=== PATIENT | female | born 1995 | race Caucasian/White ===

== ENCOUNTER 2021-05-11 19:10 | Emergency (ER) | payer OTHER, SELFPAY ==
[2021-05-11 19:54] VITALS: BP 106/66; PULSE 86; RESP 18; TEMP 36.6; O2SAT 100
--- NOTE | 2021-05-11 20:02 | PC.NURSE ---
Pt reports after triage that she may not stay as busy ED at this time. States will let staff know if she decides to leave.
--- NOTE | 2021-05-11 20:02 | PC.NURSE ---
Pt exits ED prior to being seen. Ambulatory with steady gait, no sign of distress.
== END 2021-05-11 20:02 | disposition left against medical advice (07) ==
LOC: ANHED 20:10
PROVIDERS: PCP Pediatrics Adolescent Medicine
DX: R10.9 Unspecified abdominal pain (principal)
CPT/HCPCS: 99199

== ENCOUNTER 2021-10-30 07:10 | Emergency (ER) | payer OTHER, SELFPAY ==
[2021-10-30] VITALS (13 sets, daily range): BP systolic 98–111; BP diastolic 56–71; PULSE 96; RESP 16; TEMP 39.6; O2SAT 98–100
[2021-10-30 07:51] LABS: Appearance Urine Slightly Cloudy (Clear); Bilirubin Urine 1+ (Negative); Color Urine Yellow (Yellow); Glucose Urine UA Negative (Negative); Ketones Urine 1+ mg/dL (Negative); Leukocyte Esterase Ur Negative LEU/UL (Negative); Nitrate Urine Negative (Negative); Protein Urine 1+ mg/dL (Negative); Specific Grav Ur >= 1.030 (1.001-1.035); Urobilinogen Urine 0.2 mg/dL (<2.0); pH Urine 5.5 (5.0-9.0)
[2021-10-30] MEDS: ACETAMINOPHEN 500 MG TABLET 1000 MG PO (07:51)
[2021-10-30 07:56] LABS: Add Urine Microscopic? YES; Blood Urine Trace-Intact (Negative)
[2021-10-30 08:02] LABS: Bacteria Urine Trace /hpf; Mucus Urine Moderate /lpf; Squamous Epithelial Cell Urine Many /hpf (Few); WBC Urine 0-3 /hpf
--- NOTE | 2021-10-30 08:09 | ED.FEVER ---
HPI - Fever General Chief Complaint: Fever Stated Complaint: fever, body aches, cough Time Seen by Provider: 10/30/21 07:14 History of Present Illness HPI Narrative: 26-year-old female presenting the emergency department for evaluation of fever with associated body aches fatigue and nausea. Patient states that the symptoms started yesterday and then progressed to the evening. Patient did have a fever last night that she treated with Tylenol and fever improved. Patient did not take additional Tylenol prior to arrival to the emergency department. Patient does report decreased p.o. intake and nausea but denies any vomiting or diarrhea. Patient denies any urinary symptoms. Patient denies any chest pain shortness of breath or abdominal pain. Patient does have associated cough. Patient is not vaccinated against COVID. Patient did take a home COVID test that was negative. Related Data Allergies Allergy/AdvReac Type Severity Reaction Status Date / Time ondansetron Allergy Unknown Hives Verified 10/30/21 07:51 Review of Systems Review of Systems: CONSTITUTIONAL: Fevers chills or sweats EYES: Denies visual changes, redness, or discharge. ENT: Denies rhinorrhea, congestion, sore throat, or otalgia. CARDIOVASCULAR: See HPI RESPIRATORY: Denies cough or dyspnea. GASTROINTESTINAL: See HPI GENITOURINARY: Denies dysuria or hematuria. SKIN: Denies rash or itching. MUSCULOSKELETAL: Generalized body aches NEUROLOGIC: Denies headache, numbness, or weakness. Exam Narrative: APPEARANCE: Well appearing, no pain, no distress, well-nourished. HEAD: normocephalic, atraumatic. EYES: PERRLA/EOMI, conjunctivae clear. NOSE: Normal no drainage EARS:TMS clear with good light reflex. THROAT: Pharynx clear, no exudate. NECK: Supple. No adenopathy, no masses. RESPIRATORY: Airway patent, respirations nonlabored. Clear to auscultation bilaterally, no rales, rhonchi, wheezing. CARDIOVASCULAR: Regular rate and rhythm without murmurs rubs or gallops. ABDOMINAL: Soft, nontender, nondistended, normal bowel sounds MUSCULOSKELETAL: Moves all extremities. Strength/ROM intact, No edema, No calf tenderness. NEURO: Alert. Cranial nerves II through XII intact. Grossly intact SKIN: Warm, dry. 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 Patient was updated on results of the work-up. All questions and concerns were addressed. Vital Signs Vital signs: Vital Signs Blood Pressure 111/71 10/30/21 07:16 Pulse Oximetry 100 10/30/21 07:16 Temperature 103.2 F H 10/30/21 07:20 Pulse Rate 96 10/30/21 07:20 Respiratory Rate 16 10/30/21 07:20 Blood Pressure 98/57 L 10/30/21 09:01 Pulse Oximetry 98 10/30/21 09:01 MDM - Fever Lab Data Labs: Lab Results 10/30/21 10/30/21 Range/Units 07:40 07:46 Urine Color Yellow (Yellow) Urine Appearance Slightly cloudy (Clear) Urine pH 5.5 (5.0-9.0) Ur Specific [place] >= 1.030 (1.001-1.035) Urine Protein 1+ H (Negative) mg/dL Urine Glucose (UA) Negative (Negative) mg/dL Urine Ketones 1+ H (Negative) mg/dL Ur Blood (Man) Trace-intact (Negative) Urine Nitrate Negative (Negative) Urine Bilirubin 1+ H (Negative) Urine Urobilinogen 0.2 (<2.0) mg/dL Leukocyte Esterase Rfl Negative (Negative) THAI/UL Urine RBC 3-5 H (0-2) /hpf Urine WBC 0-3 /hpf Ur Squamous Epith Cells Many H (Few) /hpf Urine Bacteria Trace /hpf Urine Mucus Moderate H /lpf SARS-CoV-2 RNA (RT-PCR) Positive A [facility] Bedside Result Negative Reference Range: Negative Discharge Plan Discharge Clinical Impression: COVID Patient Disposition: Home, Self-Care Condition: Stable Instructions: Antibiotic Form, COVID-19 (Coronavirus Disease 2019) (ED) Additional Instructions: Tylenol ibuprofen for pain control. Drink plenty of fluids. Quarantine as
[2021-10-30 08:21] LABS: SARS-CoV-2 RNA PCR Positive
[2021-10-30] MEDS: SODIUM CHLORIDE 0.9% IV 1,000 ML 999 ML IV CONT (08:32)
[2021-10-30] MEDS: KETOROLAC 15 MG/ML VIAL (*BKC) IV PUSH (08:33)
== END 2021-10-30 09:35 | disposition home or self-care (01) ==
PROVIDERS: Emergency Provider Emergency Medicine
DX: U07.1 COVID-19 (principal); Z28.310 Unvaccinated for COVID-19
CPT/HCPCS: 81001; 81025; 96361; 96374; 99284; A9270; C9803; J1885; J7030; U0003; U0005

== ENCOUNTER 2021-11-13 07:43 | Emergency (ER) | payer OTHER, SELFPAY ==
--- NOTE | ~2021-11-13 | CT_ITS ---
EXAMINATION: CT abdomen pelvis w con DATE: 11/13/2021 10:28 INDICATION: Abdominal pain. Vomiting. TECHNIQUE: Computed tomography (CT) of the abdomen and pelvis was performed with 100 mL Omnipaque 350 intravenous contrast. Automated exposure control and iterative reconstruction technique were employe d. The dose-length product was 801.07 mGy-cm. COMPARISON: None. FINDINGS: The visualized portions of the lung bases demonstrates mild atelectasis. There is a 5 mm no dule in right lower lobe, likely benign. No pleural effusion. The heart size is normal. No pericardia l effusion. The liver, gallbladder, spleen, pancreas, adrenal glands, and kidneys are normal. There a re no dilated loops of bowel. The appendix is normal. There are no pathologically enlarged lymph node s. There is physiologic fluid in the pelvis. There is mild osteoarthritis of the sacroiliac joints. IMPRESSION: 1. No etiology for the patient's symptoms. Reviewed, dictated and finalized at location A.
--- NOTE | ~2021-11-13 | US_ITS ---
EXAMINATION: US pelvic complete w TV DATE: 11/13/2021 10:01 INDICATION: Pelvic pain. TECHNIQUE: Multiple transabdominal and transvaginal sonographic images of the pelvis were obtained. COMPARISON: None. FINDINGS: TRANSABDOMINAL ULTRASOUND: The uterus measures 7.4 x 3.9 x 5.3 cm. There is physiologic free fluid in the pelvis. TRANSVAGINAL ULTRASOUND: The endometrial complex measures 5 mm in thickness. The right ovary measures 3.0 x 1.6 x 1.6 cm. The left ovary measures 3.3 x 1.4 x 1.5 cm. There is normal vascular flow in the ovaries. IMPRESSION: 1. Normal pelvis. Reviewed, dictated and finalized at location A. IMPRESSION: 1. Normal pelvis.
[2021-11-13 07:46] VITALS: BP 134/82; PULSE 96; RESP 20; TEMP 37; O2SAT 100
[2021-11-13 08:25] LABS: Basophils Absolute Auto 0.1 K/mm3 (0.0-0.1); Basophils Percent Auto 0.5 % (0.2-1.2); Eosinophils Absolute Auto 0.1 K/mm3 (0-0.3); Eosinophils Percent Auto 0.5 % (0-4.4); Hematocrit 39.3 % (37.0-47.0); Hemoglobin 12.8 g/dL (12.0-15.0); Immature Granulocyte Absolute 0.03 K/mm3 (0.00-0.031); Immature Granulocyte Percent A 0.3 % (0-0.5); Lymphocytes Absolute Auto 2.07 K/mm3 (0.9-3.2); Lymphocytes Percent Auto 20.5 % (18.3-44.2); Mean Corpuscular HGB Conc 32.6 g/dl (32-36); Mean Corpuscular Hemoglobin 29.8 pg (26-34); Mean Corpuscular Volume 91.4 fl (80-100); Mean Platelet Volume 9.1 fl (7.4-10.4); Monocytes Absolute Auto 0.6 K/mm3 (0.1-0.6); Monocytes Percent Auto 6.3 % (2.6-8.5); Neutrophils Absolute Auto 7.3 K/mm3 (1.3-6.7); Neutrophils Percent Auto 71.9 % (45.5-73.1); Platelet Count Result 341 k/mm3 (150-375); Red Cell Distribution Width 12.9 % (11.5-14.5); White Blood Count 10.1 K/mm3 (4.5-10.0)
[2021-11-13 08:41] LABS: Alanine Aminotransferase 27 U/L (6-35); Albumin Level 4.4 g/dL (3.5-5.1); Alkaline Phosphatase 79 U/L (38-126); Anion Gap 10 mmol/L (8-16); Aspartate Amino Transferase 26 U/L (14-36); Bilirubin,Total 0.4 mg/dL (0.2-1.3); Blood Urea Nitrogen 12 mg/dL (7-17); Calcium 9.2 mg/dL (8.4-10.2); Carbon Dioxide 24 mmol/L (22-30); Chloride 109 mmol/L (98-107); Estimated CRCL calculation 117 ml/min; Estimated Glomerular Filt Rate > 60; Glucose 95 mg/dL (65-110); Lipase 37 U/L (23-300); Sodium 143 mmol/L (137-145)
--- NOTE | 2021-11-13 08:59 | ED.ABDPAIN ---
HPI - Abdominal Pain General Chief Complaint: Abdominal Pain Stated Complaint: abd pain Time Seen by Provider: 11/13/21 08:41 Source: patient Mode of arrival: ambulatory Limitations: no limitations History of Present Illness HPI narrative: This is a 26-year-old female that presents to the emergency department for crampy lower abdominal pain. Ongoing since this morning. Associated with nausea, vomiting and diarrhea. Denies fevers or dysuria. Related Data Allergies Allergy/AdvReac Type Severity Reaction Status Date / Time ondansetron Allergy Unknown Hives Verified 10/30/21 07:51 Review of Systems Review of Systems: CONSTITUTIONAL: Denies fever GASTROINTESTINAL: Reports abdominal pain, nausea, vomiting, and diarrhea. GENITOURINARY: Denies dysuria All systems reviewed & are unremarkable except as noted in HPI and below PMFSH Past Medical History Medical History (Updated 11/13/21 @ 11:13 by Renu Calle PA-C) No active medical problems Social History Social History (Updated 11/13/21 @ 09:01 by Renu Calle PA-C) Smoking status: Never smoker Exam Narrative: GENERAL: Well-appearing, well-nourished, and in no acute distress. HEAD: Normocephalic, atraumatic. EYES: EOMI. CHEST: Clear to auscultation. No respiratory distress. No wheezes rales or rhonchi HEART: Regular rate and rhythm. No murmur heard. Normal peripheral pulses. ABDOMEN: Soft, nondistended, normal active bowel sounds. Mild tenderness to palpation throughout the lower abdomen, without guarding. No CVA tenderness EXTREMITIES: Normal range of motion. No edema. SKIN: Warm, dry, no rash. NEURO: No focal deficits. Alert and oriented x3. PSYCH: Normal mood and affect Course Vital Signs Vital signs: Vital Signs Temperature 98.6 F 11/13/21 07:46 Pulse Rate 96 11/13/21 07:46 Respiratory Rate 20 11/13/21 07:46 Blood Pressure 134/82 11/13/21 07:46 Pulse Oximetry 100 11/13/21 07:46 Oxygen Delivery Room Air 11/13/21 07:46 Temperature 98.6 F 11/13/21 07:46 Pulse Rate 96 11/13/21 07:46 Respiratory Rate 20 11/13/21 07:46 Blood Pressure 134/82 11/13/21 07:46 Pulse Oximetry 100 11/13/21 07:46 Oxygen Delivery Room Air 11/13/21 07:46 MDM - Abdominal Pain MDM Narrative Medical decision making narrative: Patient presents to the emergency department for lower abdominal pain present this morning. She is afebrile and nontoxic-appearing. Her vitals are stable. CBC and metabolic panel without concerning findings. Lipase is normal. UA without evidence of infection. Bedside test is negative. Pelvic ultrasound without concerning findings. CT scan of the abdomen and pelvis without acute abnormalities. Patient was updated on case findings. Hydrated and given antiemetic with relief. No episodes of vomiting in the ED. She is stable and felt appropriate for further outpatient evaluation. She was given warnings to return to the ER Lab Data Attestation: I reviewed the patient's lab results. Result diagrams: 11/13/21 08:15 11/13/21 08:15 Labs: Lab Results 11/13/21 11/13/21 11/13/21 Range/Units 08:15 08:15 08:39 WBC 10.1 H (4.5-10.0) K/mm3 RBC 4.30 (4.2-5.4) M/mm3 Hgb 12.8 (12.0-15.0) g/dL Hct 39.3 (37.0-47.0) % MCV 91.4 (80-100) fl MCH 29.8 (26-34) pg MCHC 32.6 (32-36) g/dl RDW 12.9 (11.5-14.5) % Plt Count 341 (150-375) k/mm3 MPV 9.1 (7.4-10.4) fl Immature Gran % (Auto) 0.3 (0-0.5) % Neut % (Auto) 71.9 (45.5-73.1) % Lymph % (Auto) 20.5 (18.3-44.2) % Lamb % (Auto) 6.3 (2.6-8.5) % Eos % (Auto) 0.5 (0-4.4) % Baso % (Auto) 0.5 (0.2-1.2) % Lymph # (Auto) 2.07 (0.9-3.2) K/mm3 Lamb # (Auto) 0.6 (0.1-0.6) K/mm3 Eos # (Auto) 0.1 (0-0.3) K/mm3 Baso # (Auto) 0.1 (0.0-0.1) K/mm3 Abs Immat Gran (auto) 0.03 (0.00-0.031) K/mm3 Absolute Neuts (auto) 7.3 H (1.3-6.7) K/mm3
[2021-11-13 09:03] LABS: Add Urine Microscopic? YES; Appearance Urine Slightly Cloudy (Clear); Bilirubin Urine 1+ (Negative); Blood Urine Negative (Negative); Color Urine Yellow (Yellow); Glucose Urine UA Negative (Negative); Ketones Urine Trace mg/dL (Negative); Leukocyte Esterase Ur Negative LEU/UL (Negative); Nitrate Urine Negative (Negative); Protein Urine Trace mg/dL (Negative); Specific Grav Ur >= 1.030 (1.001-1.035); pH Urine 5.5 (5.0-9.0)
--- NOTE | 2021-11-13 09:16 | PC.NURSE ---
pt taken to ultrasound at this time
[2021-11-13 09:19] LABS: Mucus Urine Heavy /lpf; Squamous Epithelial Cell Urine Many /hpf (Few)
[2021-11-13] MEDS: SODIUM CHLORIDE 0.9% IV 1,000 ML 999 ML IV CONT (09:52)
[2021-11-13] MEDS: diphenhydrAMINE HCl INJ 50 MG/ML VIAL 25 MG IV PUSH (09:52)
[2021-11-13] MEDS: METOCLOPRAMIDE HCL INJ 10 MG/2 ML VIAL IV PUSH (09:53)
--- NOTE | 2021-11-13 11:02 | PC.NURSE ---
Pt brought up to room 204 by chemical production technician and this nurse. PT was transferred to bed by floor techs and Lashawn and tech.
== END 2021-11-13 12:01 | disposition home or self-care (01) ==
PROVIDERS: Emergency Provider Emergency Medicine
DX: R10.30 Lower abdominal pain, unspecified (principal)
CPT/HCPCS: 36415; 74177; 76830; 76856; 80053; 81001; 81025; 83690; 85025; 96365; 96366; 96375; 99284; J0131; J1200; J2765; J7030; Q9967

== ENCOUNTER 2022-03-09 16:00 | Emergency (ER) | payer OTHER, SELFPAY ==
[2022-03-09 17:04] VITALS: BP 130/77; PULSE 111; RESP 18; TEMP 37.1; O2SAT 99
[2022-03-09 18:05] LABS: Influenza A QL RT-PCR Positive (Negative); Influenza B QL RT-PCR Negative (Negative); RSV RNA, RT-PCR Negative (Negative); SARS-CoV-2 RNA PCR Negative
--- NOTE | 2022-03-09 21:16 | ED.URI ---
HPI - URI/Sore Throat General Chief Complaint: Upper Respiratory Infection Stated Complaint: cough Time Seen by Provider: 03/09/22 21:04 Source: patient Mode of arrival: ambulatory Limitations: no limitations History of Present Illness HPI Narrative: This is a 27 year old female that presents to the ER for cold symptoms present since yesterday. Reports cough, congestion, malaise, fatigue, and myalgias. Reports she is not influenza vaccinated. Reports her significant other and child also have similar symptoms. She needs a note for work. Related Data Allergies Allergy/AdvReac Type Severity Reaction Status Date / Time ondansetron Allergy Unknown Hives Verified 10/30/21 07:51 Review of Systems Review of Systems: CONSTITUTIONAL: Denies fever, chills ENT: Reports congestion, sore throat RESPIRATORY: Reports cough. Denies dyspnea. GASTROINTESTINAL: Reports nausea, vomiting All systems reviewed & are unremarkable except as noted in HPI and below PMFSH Past Medical History Medical History (Updated 03/09/22 @ 21:25 by Renu Calle PA-C) No active medical problems Social History Social History (Updated 03/09/22 @ 21:22 by Renu Calle PA-C) Smoking status: Current every day smoker Exam Narrative: GENERAL: Well-appearing, well-nourished, and in no acute distress. HEAD: Normocephalic, atraumatic. EYES: EOMI. ENT: Nares clear, no rhinorrhea or epistaxis. Mucous membranes moist. Oropharynx without tonsillar hypertrophy exudate or other lesions. Bilateral TMs pearly ahumada non-bulging NECK: Supple. No adenopathy or masses. CHEST: Clear to auscultation. No respiratory distress. No wheezes rales or rhonchi HEART: Regular rate and rhythm. No murmur heard. Normal peripheral pulses. EXTREMITIES: Normal range of motion. No edema. SKIN: Warm, dry, no rash. NEURO: No focal deficits. Alert and oriented x3. PSYCH: Normal mood and affect Course Vital Signs Vital signs: Vital Signs Temperature 98.8 F 03/09/22 17:04 Pulse Rate 111 H 03/09/22 17:04 Respiratory Rate 18 03/09/22 17:04 Blood Pressure 130/77 03/09/22 17:04 Pulse Oximetry 99 03/09/22 17:04 Oxygen Delivery Room Air 03/09/22 17:04 Temperature 98.8 F 03/09/22 17:04 Pulse Rate 111 H 03/09/22 17:04 Respiratory Rate 18 03/09/22 17:04 Blood Pressure 130/77 03/09/22 17:04 Pulse Oximetry 99 03/09/22 17:04 Oxygen Delivery Room Air 03/09/22 17:04 MDM - URI/Sore Throat MDM Narrative Medical decision making narrative: Patient presents emergency department for cold symptoms present since yesterday. She is afebrile and nontoxic-appearing. Mildly tachycardic upon arrival, this normalized without intervention. Her lungs are clear on exam. Oxygen saturation is normal on room air. She is influenza A positive. Is interested in treatment with Tamiflu. Was instructed on other continued symptomatic management of viral infection. She is to follow-up with primary care provider. She was given warnings to return to the ER Lab Data Attestation: I reviewed the patient's lab results. Labs: Lab Results 03/09/22 Range/Units 17:09 Influenza A (RT-PCR) Positive (Negative) Influenza B (RT-PCR) Negative (Negative) RSV (RT-PCR) Negative (Negative) SARS-CoV-2 RNA (RT-PCR) Negative Critical Care Time Critical Care Time Critical Care Time: No Discharge Plan Discharge Clinical Impression: Influenza Patient Disposition: Home, Self-Care Condition: Stable Instructions: Influenza (ED) Additional Instructions: Return to the emergency department for worsening symptoms, or any other concerns Remain well-hydrated, get plenty of rest. Take Tylenol or Motrin [id number] for pain as needed. Flonase for nasal congestion. Zyrtec for runny nose. Lozenges or Chloraseptic spray for sore throat. Take Tamiflu as prescribed Follow up with your primary care doctor Prescriptions: New oseltamivir 75 mg cap
[2022-03-09 21:31] VITALS: BP 136/84; PULSE 85; RESP 16; O2SAT 99
== END 2022-03-09 21:43 | disposition home or self-care (01) ==
LOC: ANHED 21:41
PROVIDERS: Emergency Medicine; Emergency Provider Physician Assistant
DX: J10.1 Influenza due to other identified influenza virus with other respiratory manifestations (principal); Z20.822 Contact with and (suspected) exposure to COVID-19; F17.200 Nicotine dependence, unspecified, uncomplicated
CPT/HCPCS: 87637; 99283

== ENCOUNTER 2022-06-18 07:49 | Emergency (ER) | payer OTHER, SELFPAY ==
[2022-06-18 08:11] VITALS: BP 132/83; PULSE 96; RESP 16; TEMP 36.7; O2SAT 100
--- NOTE | 2022-06-18 09:34 | ED.FEMALEGU ---
HPI - Female Genitourinary General Chief complaint: Urogenital-Female Stated complaint: vaginal bleeding x3 weeks Time Seen by Provider: 06/18/22 09:10 Source: patient Mode of arrival: ambulatory Limitations: no limitations History of Present Illness HPI Narrative: This is a 27-year-old female that presents to the emergency department for abnormal uterine bleeding. Reports she took a Plan B pill on May 28. She then put her NuvaRing in a couple of days later. She has been having abnormal bleeding since. Reports heavy bleeding with clotting. She usually has fairly regular periods on her NuvaRing. 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 Denies shortness of breath or dizziness. Related Data Allergies Allergy/AdvReac Type Severity Reaction Status Date / Time ondansetron Allergy Unknown Hives Verified 10/30/21 07:51 Review of Systems Review of Systems: CONSTITUTIONAL: Denies fever GASTROINTESTINAL: Denies abdominal pain, vomiting GENITOURINARY: Denies dysuria or hematuria. SKIN: Denies rash All systems reviewed & are unremarkable except as noted in HPI and below PMFSH Past Medical History Medical History (Updated 06/18/22 @ 11:20 by Renu Calle PA-C) No active medical problems Social History Social History (Updated 03/09/22 @ 21:22 by Renu Calle PA-C) Smoking status: Current every day smoker Exam Narrative: GENERAL: Well-appearing, well-nourished, and in no acute distress. HEAD: Normocephalic, atraumatic. EYES: EOMI. CHEST: Clear to auscultation. No respiratory distress. No wheezes rales or rhonchi HEART: Regular rate and rhythm. No murmur heard. Normal peripheral pulses. ABDOMEN: Soft, nontender, nondistended, normal active bowel sounds. EXTREMITIES: Normal range of motion. No edema. SKIN: Warm, dry, no rash. NEURO: No focal deficits. Alert and oriented x3. PSYCH: Normal mood and affect PELVIC: Normal external genitalia. Normal appearing cervix. Small amount of dark red blood in the vaginal vault Course Course Emergency Course: Patient updated on workup and agrees with plan of care Vital Signs Vital signs: Vital Signs Temperature 98.0 F 06/18/22 08:11 Pulse Rate 96 06/18/22 08:11 Respiratory Rate 16 06/18/22 08:11 Blood Pressure 132/83 06/18/22 08:11 Pulse Oximetry 100 06/18/22 08:11 Oxygen Delivery Room Air 06/18/22 08:11 Temperature 98.0 F 06/18/22 08:11 Pulse Rate 96 06/18/22 08:11 Respiratory Rate 16 06/18/22 08:11 Blood Pressure 132/83 06/18/22 08:11 Pulse Oximetry 100 06/18/22 08:11 Oxygen Delivery Room Air 06/18/22 08:11 MDM - Female Genitourinary MDM Narrative Medical decision making narrative: Patient presents emergency department for abnormal uterine bleeding. Reporting she had taken a morning-after pill last month. Has had abnormal bleeding since. Patient's vitals are stable. Her hemoglobin is normal. No concerning amount of bleeding noted on exam. UA without evidence of infection. Bedside test is negative. Patient updated on work-up. Patient is stable and felt appropriate for further outpatient evaluation by gynecology for abnormal bleeding. She was given warnings to return to the ER Differential Diagnosis Differential diagnosis: Likely cystitis, dysmenorrhea and other (AUB) Lab Data Attestation: I reviewed the patient's lab results. 06/18/22 09:46 Labs: Lab Results 06/18/22 06/18/22 Range/Units 09:46 10:02 WBC 9.2 (4.5-10.0) K/mm3 RBC 4.29 (4.2-5.4) M/mm3 Hgb 13.4 (12.0-15.0) g/dL Hct 41.0 (37.0-47.0) % MCV 95.6 (80-100) fl MCH 31.2 (26-34) pg MCHC 32.7 (32-36) g/dl RDW 13.2 (11.5-14.5) % Plt Count 294 (150-375) k/mm3 MPV 9.2 (7.4-10.4) fl Immature Gran % (Auto) 0.3 (0-0.5) % Neut % (Auto) 71.8 (45.5-73.1) % Lymph % (Auto) 20.4 (18.3-44.2) % [place] % (Auto) 6.1 (2.6-8.5) % Eos % (Au
[2022-06-18 10:00] LABS: Basophils Absolute Auto 0.1 K/mm3 (0.0-0.1); Eosinophils Percent Auto 0.4 % (0-4.4); Hemoglobin 13.4 g/dL (12.0-15.0); Immature Granulocyte Absolute 0.03 K/mm3 (0.00-0.031); Immature Granulocyte Percent A 0.3 % (0-0.5); Lymphocytes Absolute Auto 1.87 K/mm3 (0.9-3.2); Lymphocytes Percent Auto 20.4 % (18.3-44.2); Mean Corpuscular HGB Conc 32.7 g/dl (32-36); Mean Corpuscular Hemoglobin 31.2 pg (26-34); Mean Corpuscular Volume 95.6 fl (80-100); Mean Platelet Volume 9.2 fl (7.4-10.4); Monocytes Absolute Auto 0.6 K/mm3 (0.1-0.6); Monocytes Percent Auto 6.1 % (2.6-8.5); Neutrophils Absolute Auto 6.6 K/mm3 (1.3-6.7); Neutrophils Percent Auto 71.8 % (45.5-73.1); Platelet Count Result 294 k/mm3 (150-375); Red Blood Count 4.29 M/mm3 (4.2-5.4); Red Cell Distribution Width 13.2 % (11.5-14.5); White Blood Count 9.2 K/mm3 (4.5-10.0)
[2022-06-18 10:58] LABS: Appearance Urine Cloudy (Clear); Bacteria Urine None Seen /hpf; Bilirubin Urine Negative (Negative); Blood Urine 3+ (Negative); Color Urine Yellow (Yellow); Glucose Urine UA Negative (Negative); Ketones Urine Negative (Negative); Leukocyte Esterase Ur Trace LEU/UL (Negative); Need Manual Microscopic Reviewed; Nitrate Urine Negative (Negative); Non Pathogenic Casts 0-2; Protein Urine Trace mg/dL (Negative); RBC Urine >100 /hpf (0-2); Specific Grav Ur 1.024 (1.001-1.035); Squamous Epithelial Cell Urine Occasional /hpf (Few); WBC Urine 0-5 /hpf; pH Urine 7.5 (5.0-9.0)
[2022-06-18 11:08] VITALS: O2SAT 100
[2022-06-18 11:09] VITALS: BP 121/78; O2SAT 100
[2022-06-18 11:10] LABS: Add Urine Microscopic? YES
[2022-06-18 11:15] VITALS: O2SAT 100
[2022-06-18 11:16] VITALS: BP 125/80; O2SAT 100
== END 2022-06-18 11:34 | disposition home or self-care (01) ==
PROVIDERS: Emergency Provider Physician Assistant
DX: N93.9 Abnormal uterine and vaginal bleeding, unspecified (principal)
CPT/HCPCS: 36415; 81001; 81025; 85025; 99284